=== PATIENT | male | born 2000 | race Caucasian/White ===

== ENCOUNTER 2023-03-24 07:52 | Emergency (ER) | payer MEDICAID ==
[~2023-03-24] VITALS: Ht 177.8 cm; Wt 69.1 kg
[~2023-03-24 07:52] MED LIST: CETI-90 PO
[2023-03-24 08:18] VITALS: BP 116/65; PULSE 97; RESP 18; TEMP 99.6; O2SAT 98
[2023-03-24] MEDS ORDERED: SULF1TAB48 PO (09:49)
== END 2023-03-24 10:18 | disposition home or self-care (01) ==
LOC: ER 07:53
DX: T63.391A Toxic effect of venom of other spider, accidental (unintentional), initial encounter (principal); L03.115 Cellulitis of right lower limb; Y92.89 Other specified places as the place of occurrence of the external cause
CPT/HCPCS: 99283